=== PATIENT | female | born 1970 | race American Indian/Alaskan Native ===

== ENCOUNTER 2017-09-07 23:49 | Emergency (ER) | payer MEDICARE ==
[2017-09-08 00:19] LABS: Basophils % (Auto) 0.7 % (0.0-1.8); Eosinophils % (Auto) 0.2 % (0.0-4.3); Hematocrit 42.1 % (30.3-42.9); Hemoglobin 14.7 gm/dl (10.1-14.3); Mean Corpuscular HGB Conc 35 % (30-34); Mean Corpuscular Hemoglobin 31 pg (28-32); Mean Corpuscular Volume 88 fl (79-97); Platelet Count 303 K/mm3 (140-440); Red Blood Count 4.78 M/mm3 (3.65-5.03); Red Cell Distribution Width 16.2 % (13.2-15.2); White Blood Count 7.9 K/mm3 (4.5-11.0)
[2017-09-08] MEDS ORDERED: NACL ONE (00:34)
[2017-09-08 00:39] LABS: Anion Gap 23 mmol/L; BUN/Creatinine Ratio 10; Blood Urea Nitrogen 7 mg/dL (7-17); Calcium 9.8 mg/dL (8.4-10.2); Carbon Dioxide 23 mmol/L (22-30); Chloride 98.8 mmol/L (98-107); Glucose 92 mg/dL (65-100); Potassium 3.1 mmol/L (3.6-5.0); Sodium 142 mmol/L (137-145)
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
[2017-09-08] MEDS ORDERED: MORPHINE ONE (01:38)
[2017-09-08] MEDS ORDERED: ZOFRAN ONE (01:38)
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
[2017-09-08] MEDS ORDERED: MORPHINE IV ONE (01:53)
[2017-09-08] MEDS ORDERED: ZOFRAN IV ONE (01:53)
[2017-09-08] MEDS ORDERED: XYLOCAINE 1% 20 mL INFILTRATI ONE (04:00)
[2017-09-08] MEDS ORDERED: NACL 0.9% IR ONE (04:01)
[2017-09-08] MEDS ORDERED: XYLOCAINE 1% 20 mL ONE (04:02)
[2017-09-08] MEDS ORDERED: NACL 0.9% 500 ML IR ONE (04:02)
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
[2017-09-08] MEDS ORDERED: ceFAZolin 1 GM in NACL 0.9% 100 ML IV ONE (04:53)
[2017-09-08] MEDS ORDERED: ANCEF/NS 1 GM/50 ML 1 GM/50 ML BAG IV ONE (05:00)
[2017-09-08 07:25] VITALS: BP 118/67
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
== END 2017-09-08 07:00 | disposition other institution (70) ==
LOC: ED 23:49
DX: S22.20XA Unspecified fracture of sternum, initial encounter for closed fracture (principal); S61.411A Laceration without foreign body of right hand, initial encounter; S01.411A Laceration without foreign body of right cheek and temporomandibular area, initial encounter; F12.10 Cannabis abuse, uncomplicated; F17.200 Nicotine dependence, unspecified, uncomplicated; X58.XXXA Exposure to other specified factors, initial encounter; Y93.9 Activity, unspecified; Y99.9 Unspecified external cause status; Y92.89 Other specified places as the place of occurrence of the external cause
CPT/HCPCS: 12001; 12011; 36415; 70450; 70486; 70491; 71250; 73120; 80048; 85025; 86850; 86900; 86901; 96365; 96375; 99291; J0690; J2270; J2405; Q9967

== ENCOUNTER 2018-04-02 12:40 | Emergency (ER) | payer MEDICARE ==
[2018-04-02 13:46] LABS: Basophils % (Auto) 0.2 % (0.0-1.8); Eosinophils # (Auto) 0.1 K/mm3 (0.0-0.4); Eosinophils % (Auto) 1.4 % (0.0-4.3); Lymphocytes # (Auto) 2.3 K/mm3 (1.2-5.4); Lymphocytes % (Auto) 36.2 % (13.4-35.0); Mean Corpuscular HGB Conc 36 % (30-34); Mean Corpuscular Hemoglobin 32 pg (28-32); Mean Corpuscular Volume 89 fl (79-97); Monocytes # (Auto) 0.4 K/mm3 (0.0-0.8); Monocytes % (Auto) 5.9 % (0.0-7.3); Platelet Count 296 K/mm3 (140-440); Red Blood Count 4.57 M/mm3 (3.65-5.03); Red Cell Distribution Width 15.1 % (13.2-15.2)
[2018-04-02 13:48] LABS: Hematocrit 40.7 % (30.3-42.9); Hemoglobin 14.7 gm/dl (10.1-14.3)
[2018-04-02 13:58] LABS: Alanine Aminotransferase 88 units/L (7-56); Albumin 3.7 g/dL (3.9-5); BUN/Creatinine Ratio 7; Blood Urea Nitrogen 4 mg/dL (7-17); Hemolysis Index 16; Lipase 41 units/L (13-60)
[2018-04-02 14:47] LABS: Bilirubin,Urine NEG (Negative); Blood,Urine NEG (Negative); Color,Urine Yellow (Yellow); Protein,Urine <15 mg/dL mg/dL (Negative); Urobilinogen,Urine < 2.0 mg/dL (<2.0); WBC,Urine < 1.0 /HPF (0.0-6.0)
--- NOTE | 2018-04-02 16:09 | Emergency Department Report ---
ED Abdominal Pain HPI - General Chief Complaint: Abdominal Pain Stated Complaint: ABD PAIN Time Seen by Provider: 04/02/18 15:59 Source: patient Mode of arrival: Ambulatory Limitations: No Limitations - History of Present Illness Initial Comments: Ms. Kaplan is a 48-year-old female with history of hepatitis C and lumbar degenerative disc disease. Her PCP is Dr. Reich. She's had 1 month of worsening abdominal pain. Pain is worse over the last month. He also had vomiting and diarrhea. She also has neck and back pain to which she attributes to her degenerative disc disease. She denies fever. Only surgical history includes . She is a heavy drinker. She drinks half a gallon with 12- 24 beers daily. MD Complaint: abdominal pain -: Gradual, month(s) (1) Radiation: none Migration to: no migration Severity: severe Quality: cramping Consistency: constant Improves With: nothing Worsens With: nothing Associated Symptoms: nausea, vomiting, diarrhea - Related Data Home Medications Medication Instructions Recorded Confirmed Last Taken lamoTRIgine [LaMICtal] 25 mg PO QDAY 09/08/17 09/08/17 Unknown traZODone [Desyrel] 100 mg PO QHS 09/08/17 09/08/17 Unknown Previous Rx's Medication Instructions Recorded Last Taken Type oxyCODONE /ACETAMINOPHEN [Percocet 1 tab PO Q6HR PRN #10 tablet 04/02/18 Unknown Rx 5/325] Allergies Allergy/AdvReac Type Severity Reaction Status Date / Time No Known Allergies Allergy Verified 04/02/18 13:07 ED Review of Systems ROS: Stated complaint: ABD PAIN Other details as noted in HPI Comment: All other systems reviewed and negative Constitutional: denies: fever, malaise Respiratory: denies: cough Cardiovascular: denies: chest pain ED Past Medical Hx - Past Medical History Previous Medical History?: Yes Hx Psychiatric Treatment: Yes Additional medical history: HEP C - Surgical History Additional Surgical History: - Social History Smoking Status: Current Every Day Smoker Substance Use Type: Alcohol - Medications Home Medications: Home Medications Medication Instructions Recorded Confirmed Last Taken Type lamoTRIgine [LaMICtal] 25 mg PO QDAY 09/08/17 09/08/17 Unknown History traZODone [Desyrel] 100 mg PO QHS 10/22/17 10/22/17 Unknown History oxyCODONE /ACETAMINOPHEN [Percocet 1 tab PO Q6HR PRN #10 tablet 04/02/18 Unknown Rx 5/325] ED Physical Exam - General Limitations: No Limitations General appearance: alert, in no apparent distress - Head Head exam: Present: atraumatic, normocephalic - Eye Eye exam: Present: normal appearance - ENT ENT exam: Present: mucous membranes moist - Neck Neck exam: Present: normal inspection - Respiratory Respiratory exam: Present: normal lung sounds bilaterally. Absent: respiratory distress, wheezes, rales, rhonchi - Cardiovascular Cardiovascular Exam: Present: regular rate, normal rhythm, normal heart sounds. Absent: bradycardia, tachycardia, systolic murmur, diastolic murmur, rubs, gallop - GI/Abdominal GI/Abdominal exam: Present: soft, normal bowel sounds. Absent: distended, tenderness, guarding, rebound - Extremities Exam Extremities exam: Present: normal inspection - Back Exam Back exam: Present: normal inspection - Neurological Exam Neurological exam: Present: alert, oriented X3 - Psychiatric Psychiatric exam: Present: normal affect, normal mood - Skin Skin exam: Present: warm, dry, intact, normal color. Absent: rash ED Course Vital Signs 04/02/18 13:07 Temperature 98.8 F Pulse Rate 105 H Respiratory 18 Rate Blood Pressure 119/67 O2 Sat by Pulse 100 Oximetry ED Medical Decision Making - Lab Data Result diagrams: 04/02/18 13:17 04/02/18 13:17 Laboratory Results - last 24 hr 04/02/18 04/02/18 04/02/18 13:17 13:17 Unknown WBC 6.2 RBC 4.57 Hgb 14.7 H Hct 40.7 MCV 89 MCH 32 MCHC 36 H RDW 15.1 Plt Count 296 Lymph % (Auto) 36.2 H [place] % (Auto) 5.9 Eos % (Auto) 1.4 Baso % (Auto) 0.2 Lymph # 2.3 Perkins # 0.4 Eos # 0.1 Baso # 0.0 Seg Neutrophils % 56.3 Seg Neutrophils # 3.5 Sodium 142 Potassium 4.5 Chloride 104.5 Carbon Dioxide 26 Anion Gap 16 BUN 4 L Creatinine 0.6 L Estimated GFR > 60 BUN/Creatinine Ratio 7 Glucose 106 H Calcium 9.0 Total Bilirubin 0.70 AST 75 H ALT 88 H Alkaline Phosphatase 105 Total Protein 7.2 Albumin 3.7 L Albumin/Globulin Ratio 1.1 Lipase 41 Urine Color Yellow Urine Turbidity Clear Urine pH 7.0 Ur Specific [place] 1.004 Urine Protein <15 mg/dl Urine Glucose (UA) Neg Urine Ketones Neg Urine Blood Neg Urine Nitrite Neg Urine Bilirubin Neg Urine Urobilinogen < 2.0 Ur Leukocyte Esterase Neg Urine WBC (Auto) < 1.0 Urine RBC (Auto) 1.0 - Medical Decision Making Ms. Mireles presents with 1 month of abdominal pain and chronic neck and back pain. No indication of peritonitis. No indication of bowel obstruction. Normal white count. Normal hemoglobin and hematocrit. Differential diagnosis pain related to alcoholic gastritis versus peptic ulcer disease versus pain related to hepatitis. I prescribed 10 tablets of Percocet. I strongly recommended follow-up with her primary physician Dr. Reich. She stated that she did not want to pay the 4 dollar co-pay in order to see her PCP. I urgently recommended PCP follow-up for definitive care. I do not detect any emergent cause of her abdominal pain currently. Critical care attestation.: If time is entered above; I have spent that time in minutes in the direct care of this critically ill patient, excluding procedure time. ED Disposition Clinical Impression: Abdominal pain, Neck pain, Back pain Disposition: DC-01 TO HOME OR SELFCARE Is pt being admited?: No Does the pt Need Aspirin: No Condition: Stable Instructions: Abdominal Pain (ED), Chronic Back Pain (ED) Additional Instructions: Please see Dr. Reich this week. Prescriptions: oxyCODONE /ACETAMINOPHEN [Percocet 5/325] 1 tab PO Q6HR PRN #10 tablet PRN Reason: Pain Referrals: PRIMARY CARE, [Primary Care Provider] - [facility] Time of Disposition: 16:10
[2018-04-02] MEDS ORDERED: PERCOCET 5/325 PO ONE (16:11)
[2018-04-02 17:26] VITALS: BP 128/72
== END 2018-04-02 17:00 | disposition home or self-care (01) ==
LOC: ED 12:40
DX: R10.9 Unspecified abdominal pain (principal); R11.2 Nausea with vomiting, unspecified; R19.7 Diarrhea, unspecified; M54.9 Dorsalgia, unspecified; F17.200 Nicotine dependence, unspecified, uncomplicated
CPT/HCPCS: 36415; 80053; 81001; 83690; 85025; 99283

== ENCOUNTER 2018-04-13 13:50 | Observation (INO) | payer MEDICARE ==
--- NOTE | 2018-04-13 15:11 | Emergency Department Report ---
ED Psych HPI - General Chief Complaint: Psych Stated Complaint: PSYCH EVAL Time Seen by Provider: 04/13/18 14:42 Source: patient, EMS Mode of arrival: Stretcher - History of Present Illness Initial Comments: 48-year-old female with a history of bipolar disorder. She is brought per EMS after they were summoned by the police. She was "having a manic episode". She states that she was in the right a parking lot. She states she is recently restarted her psychiatric medications. At the time of my initial encounter she was sleeping. She was easily arousable. She did speak to me and stated that she "just had a panic attack". She is not apparently actively manic or depressed. She is not voicing any suicidal or homicidal ideation. She is sitting on the gurney with medical records from another individual who she states is her boyfriend. She states that they were both seen at [place]. She has a relatively large folder with prescriptions for that individual. I did not review the folder. I did ask her where that individual was and if they need their prescriptions. She stated they were at home and yesterday do need their prescriptions. Exactly why she is carrying this folder I do not know. She is guarded about the fact that she received 5 mg of Haldol IM in the ambulance. She did not volunteer that information to me but obviously has a Band-Aid on her arm. She is not actively delusional nor hallucinating. Complaint: other -: unknown Associated Psychiatric Symptoms: other (manic episode) Quality: other (improving with Haldol) Improves With: none (as above) Worsens With: none Context: not taking psychiatric (probably poor compliance) Associated Symptoms: denies other symptoms Treatments Prior to Arrival: placed on mental he (I am now placing the patient on a 1013 to enable mental health evaluation at a minimum) - Related Data Home Medications Medication Instructions Recorded Confirmed Last Taken lamoTRIgine [LaMICtal] 25 mg PO QDAY 09/08/17 09/08/17 Unknown traZODone [Desyrel] 100 mg PO QHS 09/08/17 09/08/17 Unknown Previous Rx's Medication Instructions Recorded Last Taken Type oxyCODONE /ACETAMINOPHEN [Percocet 1 tab PO Q6HR PRN #10 tablet 04/02/18 Unknown Rx 5/325] Allergies Allergy/AdvReac Type Severity Reaction Status Date / Time codeine Allergy Itching Verified 04/13/18 14:16 ED Review of Systems ROS: Stated complaint: PSYCH EVAL Other details as noted in HPI Constitutional: denies: chills, fever Eyes: denies: eye pain, eye discharge, vision change ENT: denies: ear pain, throat pain Respiratory: denies: cough, shortness of breath, wheezing Cardiovascular: denies: chest pain, palpitations Endocrine: no symptoms reported Gastrointestinal: denies: abdominal pain, nausea, diarrhea Genitourinary: denies: urgency, dysuria, discharge Musculoskeletal: denies: back pain, joint swelling, arthralgia Skin: denies: rash, lesions Neurological: denies: headache, weakness, paresthesias Psychiatric: as per HPI, other ("panic attack"). denies: depression Hematological/Lymphatic: denies: easy bleeding, easy bruising ED Past Medical Hx - Past Medical History Previous Medical History?: Yes Hx Psychiatric Treatment: Yes (Bi polar, Paranoid Schizophrenia) Additional medical history: HEP C - Surgical History Past Surgical History?: Yes Additional Surgical History: - Social History Smoking Status: Current Every Day Smoker Substance Use Type: Alcohol, Cocaine - Medications Home Medications: Home Medications Medication Instructions Recorded Confirmed Last Taken Type lamoTRIgine [LaMICtal] 25 mg PO QDAY 09/08/17 09/08/17 Unknown History traZODone [Desyrel] 100 mg PO QHS 09/08/17 09/08/17 Unknown History oxyCODONE /ACETAMINOPHEN [Percocet 1 tab PO Q6HR PRN #10 tablet 04/02/18 Unknown Rx 5/325] ED Physical Exam - General Limitations: No Limitations General appearance: alert, in no apparent distress - Head Head exam: Present: atraumatic, normocephalic - Eye Eye exam: Present: normal appearance. Absent: scleral icterus - ENT ENT exam: Present: mucous membranes moist - Neck Neck exam: Present: normal inspection. Absent: meningismus - Respiratory Respiratory exam: Present: normal lung sounds bilaterally. Absent: respiratory distress - Cardiovascular Cardiovascular Exam: Present: regular rate, normal rhythm. Absent: systolic murmur, diastolic murmur, rubs, gallop - GI/Abdominal GI/Abdominal exam: Present: soft, normal bowel sounds. Absent: distended, tenderness, guarding, rebound, rigid - Extremities Exam Extremities exam: Present: normal inspection - Back Exam Back exam: Present: normal inspection - Neurological Exam Neurological exam: Present: alert, oriented X3, CN II-XII intact. Absent: motor sensory deficit - Psychiatric Psychiatric exam: Present: normal mood, flat affect - Skin Skin exam: Present: warm, dry, intact, normal color. Absent: rash ED Course Vital Signs 04/13/18 14:13 Temperature 98.8 F Pulse Rate 120 H Respiratory 16 Rate Blood Pressure 134/74 O2 Sat by Pulse 100 Oximetry - Reevaluation(s) Reevaluation #1: Patient will be 1013 until this can be further evaluated. Mental health counselor evaluation is pending. 04/13/18 15:13 Reevaluation #2: I compared with the hospitalist Dr. Ortega. He decided to admit this patient for hyponatremia. Inpatient psychiatric evaluation will continue. 04/13/18 17:29 ED Medical Decision Making - Lab Data Result diagrams: 04/13/18 15:03 04/13/18 15:03 Laboratory Results - last 24 hr 04/13/18 04/13/18 04/13/18 15:03 15:03 15:03 WBC RBC Hgb Hct MCV MCH MCHC RDW Plt Count Lymph % (Auto) [place] % (Auto) Eos % (Auto) Baso % (Auto) Lymph # [place] # Eos # Baso # Seg Neutrophils % Seg Neutrophils # Sodium 125 L Potassium 3.1 L Chloride 92.0 L Carbon Dioxide 23 Anion Gap 13 BUN 6 L Creatinine 0.5 L Estimated GFR > 60 BUN/Creatinine Ratio 12 Glucose 88 Calcium 9.0 Total Bilirubin Direct Bilirubin Indirect Bilirubin AST ALT Alkaline Phosphatase Total Creatine Kinase CK-MB (CK-2) CK-MB (CK-2) Rel Index Total Protein Albumin Albumin/Globulin Ratio Urine Color Urine Turbidity Urine pH Ur Specific [place] Urine Protein Urine Glucose (UA) Urine Ketones Urine Blood Urine Nitrite Urine Bilirubin Urine Urobilinogen Ur Leukocyte Esterase Urine WBC (Auto) Urine RBC (Auto) U Epithel Cells (Auto) Urine Mucus Salicylates < 0.3 L Urine Opiates Screen Urine Methadone Screen Acetaminophen < 5.0 L Ur Barbiturates Screen Ur Phencyclidine Scrn Ur Amphetamines Screen U Benzodiazepines Scrn U Marijuana (THC) Screen Plasma/Serum Alcohol 04/13/18 04/13/18 04/13/18 15:03 15:03 15:03 WBC 8.2 RBC 4.49 Hgb 13.9 Hct 40.0 MCV 89 MCH 31 MCHC 35 H RDW 14.3 Plt Count 315 Lymph % (Auto) 28.8 [place] % (Auto) 5.7 Eos % (Auto) 0.6 Baso % (Auto) 0.7 Lymph # 2.4 [place] # 0.5 Eos # 0.0 Baso # 0.1 Seg Neutrophils % 64.2 Seg Neutrophils # 5.3 Sodium Potassium Chloride Carbon Dioxide Anion Gap BUN Creatinine Estimated GFR BUN/Creatinine Ratio Glucose Calcium Total Bilirubin 0.90 Direct Bilirubin 0.3 H Indirect Bilirubin 0.6 AST 93 H ALT 97 H Alkaline Phosphatase 123 Total Creatine Kinase 216 H CK-MB (CK-2) 3.0 CK-MB (CK-2) Rel Index 1.3 Total Protein 7.8 Albumin 4.0 Albumin/Globulin Ratio 1.1 Urine Color Urine Turbidity Urine pH Ur Specific [place] Urine Protein Urine Glucose (UA) Urine Ketones Urine Blood Urine Nitrite Urine Bilirubin Urine Urobilinogen Ur Leukocyte Esterase Urine WBC (Auto) Urine RBC (Auto) U Epithel Cells (Auto) Urine Mucus Salicylates Urine Opiates Screen Urine Methadone Screen Acetaminophen Ur Barbiturates Screen Ur Phencyclidine Scrn Ur Amphetamines Screen U Benzodiazepines Scrn U Marijuana (THC) Screen Plasma/Serum Alcohol < 0.01 04/13/18 04/13/18 16:26 16:26 WBC RBC Hgb Hct MCV MCH MCHC RDW Plt Count Lymph % (Auto) [place] % (Auto) Eos % (Auto) Baso % (Auto) Lymph # [place] # Eos # Baso # Seg Neutrophils % Seg Neutrophils # Sodium Potassium Chloride Carbon Dioxide Anion Gap BUN Creatinine Estimated GFR BUN/Creatinine Ratio Glucose Calcium Total Bilirubin Direct Bilirubin Indirect Bilirubin AST ALT Alkaline Phosphatase Total Creatine Kinase CK-MB (CK-2) CK-MB (CK-2) Rel Index Total Protein Albumin Albumin/Globulin Ratio Urine Color Yellow Urine Turbidity Clear Urine pH 5.0 Ur Specific [place] 1.004 Urine Protein <15 mg/dl Urine Glucose (UA) Neg Urine Ketones Neg Urine Blood Neg Urine Nitrite Neg Urine Bilirubin Neg Urine Urobilinogen < 2.0 Ur Leukocyte Esterase Neg Urine WBC (Auto) 3.0 Urine RBC (Auto) < 1.0 U Epithel Cells (Auto) 1.0 Urine Mucus Few Salicylates Urine Opiates Screen Presumptive negative Urine Methadone Screen Presumptive negative Acetaminophen Ur Barbiturates Screen Presumptive negative Ur Phencyclidine Scrn Presumptive negative Ur Amphetamines Screen Presumptive negative U Benzodiazepines Scrn Presumptive negative U Marijuana (THC) Screen Presumptive negative Plasma/Serum Alcohol Critical care attestation.: If time is entered above; I have spent that time in minutes in the direct care of this critically ill patient, excluding procedure time. ED Disposition Clinical Impression: Hyponatremia, Hypokalemia Bipolar disorder Qualifiers: Active/Remission status: currently active Current bipolar episode type: manic Current episode severity: severe Psychotic features: without psychotic features Qualified Code(s): F31.13 - Bipolar disorder, current episode manic without psychotic features, severe Disposition: DC-09 OP ADMIT IP TO THIS HOSP Is pt being admited?: Yes Does the pt Need Aspirin: No Condition: Stable Referrals: PRIMARY CARE, [Primary Care Provider] - 3-5 Days Time of Disposition: 17:30
[2018-04-13 15:26] LABS: Basophils # (Auto) 0.1 K/mm3 (0.0-0.1); Basophils % (Auto) 0.7 % (0.0-1.8); Eosinophils % (Auto) 0.6 % (0.0-4.3); Hemoglobin 13.9 gm/dl (10.1-14.3); Lymphocytes # (Auto) 2.4 K/mm3 (1.2-5.4); Lymphocytes % (Auto) 28.8 % (13.4-35.0); Mean Corpuscular HGB Conc 35 % (30-34); Mean Corpuscular Hemoglobin 31 pg (28-32); Mean Corpuscular Volume 89 fl (79-97); Monocytes # (Auto) 0.5 K/mm3 (0.0-0.8); Monocytes % (Auto) 5.7 % (0.0-7.3); Platelet Count 315 K/mm3 (140-440); Red Blood Count 4.49 M/mm3 (3.65-5.03); Red Cell Distribution Width 14.3 % (13.2-15.2)
[2018-04-13 15:32] LABS: BUN/Creatinine Ratio 12; Blood Urea Nitrogen 6 mg/dL (7-17); Hemolysis Index 3
[2018-04-13 15:47] LABS: Bilirubin,Direct 0.3 mg/dL (0-0.2)
[2018-04-13 16:34] LABS: Bilirubin,Urine NEG (Negative); Blood,Urine NEG (Negative); Color,Urine Yellow (Yellow); Mucus,Urine FEW /HPF; Protein,Urine <15 mg/dL mg/dL (Negative); RBC,Urine < 1.0 /HPF (0.0-6.0); Urobilinogen,Urine < 2.0 mg/dL (<2.0)
[2018-04-13 16:41] LABS: Amphetamine Screen,Urine PRESUMPTIVE NEGATIVE; Benzodiazepines Screen,Urine PRESUMPTIVE NEGATIVE; Cannabinoid Screen,Urine PRESUMPTIVE NEGATIVE; Methadone Screen,Urine PRESUMPTIVE NEGATIVE; Opiate Screen,Urine PRESUMPTIVE NEGATIVE
[2018-04-13] MEDS ORDERED: K-DUR PO ONE ×2 (16:54→17:00)
[2018-04-13] MEDS ORDERED: NACL 0.9% 1000 ML 1,000 ML IV ONE (16:55)
[2018-04-13 17:00] LABS: Cocaine Screen,Urine PRESUMPTIVE POSITIVE
--- NOTE | 2018-04-13 17:35 | History and Physical Report ---
History of Present Illness Date of examination: 04/13/18 Date of admission: 04/13/2018 Chief complaint: Chief complaint: Manic episode as per EMS History of present illness: History of Present Illness: 48-year-old -[place] female with history of bipolar disorder brought in by EMS for her possible "manic episode" patient was recently started her on psychiatric medicines. Patient says that she just had a panic attack. In the ER patient was not in a manic state and was not suicidal or homicidal. No fever no chills patient is carrying a folder and says that she has all her medications. I was called by the ER physician to admit her because of this low sodium and low potassium. Her sodium was 125 and she is not on any diuretics or Lasix. No shortness of breath no fever. No chills no chest pain no nausea no vomiting. Her low sodium could not be explained by the medication she's taking. Past Medical History Previous Medical History?: Yes Hx Psychiatric Treatment: Yes (Bi polar, Paranoid Schizophrenia) Additional medical history: HEP C Surgical History Past Surgical History?: Yes Additional Surgical History: Social History Smoking Status: Current Every Day Smoker Substance Use Type: Alcohol, Cocaine Family history Htn Medications Home Medications: Home Medications Medication Instructions Recorded Confirmed Last Taken Type lamoTRIgine [LaMICtal] 25 mg PO QDAY 09/08/17 09/08/17 Unknown History traZODone [Desyrel] 100 mg PO QHS 09/08/17 09/08/17 Unknown History oxyCODONE /ACETAMINOPHEN [Percocet 1 tab PO Q6HR PRN #10 tablet 04/02/18 Unknown Rx 5/325] Review of Systems ROS: Stated complaint: PSYCH EVAL Other details as noted in HPI Constitutional: denies: chills, fever Eyes: denies: eye pain, eye discharge, vision change ENT: denies: ear pain, throat pain Respiratory: denies: cough, shortness of breath, wheezing Cardiovascular: denies: chest pain, palpitations Endocrine: no symptoms reported Gastrointestinal: denies: abdominal pain, nausea, diarrhea Genitourinary: denies: urgency, dysuria, discharge Musculoskeletal: denies: back pain, joint swelling, arthralgia Skin: denies: rash, lesions Neurological: denies: headache, weakness, paresthesias Psychiatric: as per HPI, other ("panic attack"). denies: depression Hematological/Lymphatic: denies: easy bleeding, easy bruising Medications and Allergies Allergies Allergy/AdvReac Type Severity Reaction Status Date / Time codeine Allergy Itching Verified 04/13/18 14:16 Home Medications Medication Instructions Recorded Confirmed Last Taken Type lamoTRIgine [LaMICtal] 25 mg PO QDAY 09/08/17 09/08/17 Unknown History traZODone [Desyrel] 100 mg PO QHS 09/08/17 09/08/17 Unknown History oxyCODONE /ACETAMINOPHEN [Percocet 1 tab PO Q6HR PRN #10 tablet 04/02/18 Unknown Rx 5/325] Active Meds: Active Medications Sodium Chloride (Nacl 0.9% 1000 Ml) 1,000 mls @ 125 mls/hr IV ONCE ONE Stop: 04/14/18 00:54 Exam - Physical Exam Narrative exam: Lying in bed comfortably - Constitutional Vitals: Temp Pulse Resp BP Pulse Ox 98.8 F 120 H 16 134/74 100 04/13/18 14:13 04/13/18 14:13 04/13/18 14:13 04/13/18 14:13 04/13/18 14:13 General appearance: Present: no acute distress, well-nourished - EENT Eyes: Present: PERRL ENT: hearing intact, clear oral mucosa - Neck Neck: Present: supple, normal ROM - Respiratory Respiratory effort: normal Respiratory: bilateral: CTA - Cardiovascular Heart rate: 78 Rhythm: regular Heart Sounds: Present: S1 & S2. Absent: rub, click - Extremities Extremities: no ischemia, pulses intact, pulses symmetrical, No edema Peripheral Pulses: within normal limits - Abdominal General gastrointestinal: Present: soft, non-tender, non-distended, normal bowel sounds Female genitourinary: Present: normal - Rectal Rectal Exam: deferred - Integumentary Integumentary: Present: clear, warm, dry - Musculoskeletal Musculoskeletal: gait normal, strength equal bilaterally - Psychiatric Psychiatric: appropriate mood/affect, intact judgment & insight - Neurologic Neurologic: CNII-XII intact, moves all extremities - Allied Health Allied health notes reviewed: nursing, case management Results - Labs CBC & Chem 7: 04/13/18 15:03 04/13/18 15:03 Labs: Laboratory Last Values WBC 8.2 K/mm3 (4.5-11.0) 04/13/18 15:03 RBC 4.49 M/mm3 (3.65-5.03) 04/13/18 15:03 Hgb 13.9 gm/dl (10.1-14.3) 04/13/18 15:03 Hct 40.0 % (30.3-42.9) 04/13/18 15:03 MCV 89 fl (79-97) 04/13/18 15:03 MCH 31 pg (28-32) 04/13/18 15:03 MCHC 35 % (30-34) H 04/13/18 15:03 RDW 14.3 % (13.2-15.2) 04/13/18 15:03 Plt Count 315 K/mm3 (140-440) 04/13/18 15:03 Lymph % (Auto) 28.8 % (13.4-35.0) 04/13/18 15:03 [place] % (Auto) 5.7 % (0.0-7.3) 04/13/18 15:03 Eos % (Auto) 0.6 % (0.0-4.3) 04/13/18 15:03 Baso % (Auto) 0.7 % (0.0-1.8) 04/13/18 15:03 Lymph # 2.4 K/mm3 (1.2-5.4) 04/13/18 15:03 [place] # 0.5 K/mm3 (0.0-0.8) 04/13/18 15:03 Eos # 0.0 K/mm3 (0.0-0.4) 04/13/18 15:03 Baso # 0.1 K/mm3 (0.0-0.1) 04/13/18 15:03 Seg Neutrophils % 64.2 % (40.0-70.0) 04/13/18 15:03 Seg Neutrophils # 5.3 K/mm3 (1.8-7.7) 04/13/18 15:03 Sodium 125 mmol/L (137-145) L 04/13/18 15:03 Potassium 3.1 mmol/L (3.6-5.0) L 04/13/18 15:03 Chloride 92.0 mmol/L (98-107) L 04/13/18 15:03 Carbon Dioxide 23 mmol/L (22-30) 04/13/18 15:03 Anion Gap 13 mmol/L 04/13/18 15:03 BUN 6 mg/dL (7-17) L 04/13/18 15:03 Creatinine 0.5 mg/dL (0.7-1.2) L 04/13/18 15:03 Estimated GFR > 60 ml/min 04/13/18 15:03 BUN/Creatinine Ratio 12 % 04/13/18 15:03 Glucose 88 mg/dL (65-100) 04/13/18 15:03 Calcium 9.0 mg/dL (8.4-10.2) 04/13/18 15:03 Total Bilirubin 0.90 mg/dL (0.1-1.2) 04/13/18 15:03 Direct Bilirubin 0.3 mg/dL (0-0.2) H 04/13/18 15:03 Indirect Bilirubin 0.6 mg/dL 04/13/18 15:03 AST 93 units/L (5-40) H 04/13/18 15:03 ALT 97 units/L (7-56) H 04/13/18 15:03 Alkaline Phosphatase 123 units/L (35-129) 04/13/18 15:03 Total Creatine Kinase 216 units/L (30-135) H 04/13/18 15:03 CK-MB (CK-2) 3.0 ng/mL (0.0-4.0) 04/13/18 15:03 CK-MB (CK-2) Rel Index 1.3 (0-4) 04/13/18 15:03 Total Protein 7.8 g/dL (6.3-8.2) 04/13/18 15:03 Albumin 4.0 g/dL (3.9-5) 04/13/18 15:03 Albumin/Globulin Ratio 1.1 % 04/13/18 15:03 Urine Color Yellow (Yellow) 04/13/18 16:26 Urine Turbidity Clear (Clear) 04/13/18 16:26 Urine pH 5.0 (5.0-7.0) 04/13/18 16:26 Ur Specific [place] 1.004 (1.003-1.030) 04/13/18 16:26 Urine Protein <15 mg/dl mg/dL (Negative) 04/13/18 16:26 Urine Glucose (UA) Neg mg/dL (Negative) 04/13/18 16:26 Urine Ketones Neg mg/dL (Negative) 04/13/18 16:26 Urine Blood Neg (Negative) 04/13/18 16:26 Urine Nitrite Neg (Negative) 04/13/18 16:26 Urine Bilirubin Neg (Negative) 04/13/18 16:26 Urine Urobilinogen < 2.0 mg/dL (<2.0) 04/13/18 16:26 Ur Leukocyte Esterase Neg (Negative) 04/13/18 16:26 Urine WBC (Auto) 3.0 /HPF (0.0-6.0) 04/13/18 16:26 Urine RBC (Auto) < 1.0 /HPF (0.0-6.0) 04/13/18 16:26 U Epithel Cells (Auto) 1.0 /HPF (0-13.0) 04/13/18 16:26 Urine Mucus Few /HPF 04/13/18 16:26 Salicylates < 0.3 mg/dL (2.8-20.0) L 04/13/18 15:03 Urine Opiates Screen Presumptive negative 04/13/18 16:26 Urine Methadone Screen Presumptive negative 04/13/18 16:26 Acetaminophen < 5.0 ug/mL (10.0-30.0) L 04/13/18 15:03 Ur Barbiturates Screen Presumptive negative 04/13/18 16:26 Ur Phencyclidine Scrn Presumptive negative 04/13/18 16:26 Ur Amphetamines Screen Presumptive negative 04/13/18 16:26 U Benzodiazepines Scrn Presumptive negative 04/13/18 16:26 Urine Cocaine Screen Presumptive positive 04/13/18 16:26 U Marijuana (THC) Screen Presumptive negative 04/13/18 16:26 Drugs of Abuse Note Disclamer 04/13/18 16:26 Plasma/Serum Alcohol < 0.01 % (0-0.07) 04/13/18 15:03 - Imaging and Cardiology Imaging and Cardiology: No EKG was done No head CT was done Assessment and Plan Advance Directives: Yes (full code) VTE prophylaxis?: Chemical Plan of care discussed with patient/family: Yes - Patient Problems (1) Hyponatremia Current Visit: Yes Status: Acute Plan to address problem: Etiology unclear Patient on trazodone and Lamictal Check PDR to see whether these drugs cause hyponatremia Serum osmolarity and urine osmolarity ordered IV normal saline Check BMP again (2) Hypokalemia Current Visit: Yes Status: Acute Plan to address problem: Supplemented (3) Bipolar disorder Current Visit: Yes Status: Acute Qualifiers: Active/Remission status: currently active Current bipolar episode type: manic Current episode severity: severe Psychotic features: without psychotic features Qualified Code(s): F31.13 - Bipolar disorder, current episode manic without psychotic features, severe (4) Bipolar disorder Current Visit: Yes Status: Chronic Qualifiers: Current bipolar episode type: mixed Plan to address problem: Continue trazodone and Lamictal Mental health consult requested Patient on 1013 (5) DVT prophylaxis Current Visit: Yes Status: Acute Plan to address problem: Heparin 5000.
[2018-04-13] MEDS ORDERED: PERCOCET 5/325 PO PRN ×2 (17:39→17:47)
[2018-04-13 17:41] LABS: BUN/Creatinine Ratio 14; Blood Urea Nitrogen 7 mg/dL (7-17); Calcium 8.6 mg/dL (8.4-10.2); Hemolysis Index 10
[2018-04-13] MEDS ORDERED: TYLENOL PO PRN ×2 (17:44→17:47)
[2018-04-13] MEDS ORDERED: SODIUM CHLORIDE FLUSH SYRINGE 10 ML IV PRN ×2 (17:44→17:47)
[2018-04-13] MEDS ORDERED: ZOFRAN IV PRN ×2 (17:44→17:47)
[2018-04-13] MEDS ORDERED: MORPHINE IV PRN (17:47)
[2018-04-13] MEDS ORDERED: LaMICtal PO SCH (18:00)
[2018-04-13] MEDS: DESYREL PO SCH (21:36)
[2018-04-13] MEDS: D5NS 1,000 ML IV SCH (21:36)
[2018-04-13] MEDS ORDERED: SODIUM CHLORIDE FLUSH SYRINGE 10 ML IV SCH ×2 (22:00)
[2018-04-14] MEDS: D5NS 1,000 ML IV SCH ×3 (05:41→21:51)
[2018-04-14 06:19] LABS: Basophils # (Auto) 0.1 K/mm3 (0.0-0.1); Basophils % (Auto) 0.9 % (0.0-1.8); Eosinophils # (Auto) 0.2 K/mm3 (0.0-0.4); Eosinophils % (Auto) 2.8 % (0.0-4.3); Hematocrit 37.9 % (30.3-42.9); Hemoglobin 13.4 gm/dl (10.1-14.3); Lymphocytes # (Auto) 2.8 K/mm3 (1.2-5.4); Lymphocytes % (Auto) 52.5 % (13.4-35.0); Mean Corpuscular HGB Conc 35 % (30-34); Mean Corpuscular Hemoglobin 32 pg (28-32); Mean Corpuscular Volume 89 fl (79-97); Monocytes # (Auto) 0.4 K/mm3 (0.0-0.8); Monocytes % (Auto) 7.1 % (0.0-7.3); Platelet Count 295 K/mm3 (140-440); Red Blood Count 4.24 M/mm3 (3.65-5.03); Red Cell Distribution Width 14.6 % (13.2-15.2)
[2018-04-14 07:28] LABS: Alanine Aminotransferase 75 units/L (7-56); Albumin 3.2 g/dL (3.9-5); BUN/Creatinine Ratio 18; Blood Urea Nitrogen 9 mg/dL (7-17); Calcium 8.4 mg/dL (8.4-10.2); Hemolysis Index 4
--- NOTE | 2018-04-14 09:49 | Consultation ---
History of Present Illness - Reason for Consult Consult date: 04/14/18 Reason for consult: Mental Health Evaluation Requesting physician: ZEINA CHRISTIAN - Chief Complaint Chief complaint: "I had a panic attack" - History of Present Psychiatric Illness 48-year-old female with a history of bipolar disorder. She is brought per EMS after they were summoned by the police. Psychiatry was consulted for medication management, also the patient is on a 1013. Today the patient is anxious during the assessment. She stated that she felt like she was having a panic attack prior to coming the ER. She was asked about what happened at a pharmacy parking lot her 1013, she could not elaborate. She stated for the past several days that "someone or some people" may be after her. She stated that they used to engage in illegal activity and decided to stop recently. She feel like she " know to much" and the leader of the illegal activity may harm her. She stated being compliant with her Trazodone, Zyprexa, and Vistaril for the past week. She stated that she took Lamictal several yrs ago. She stated that Lamictal is not one of her current psy medications. She denies SI/HI's and AVH's. She stated having erratic sleep, but denies a poor appetite. She acknowledged recreational drugs use socially, but denies alcohol consumption (etoh). She stated that her boyfriend can be reached at [phone] for collateral information. Medications and Allergies Allergies Allergy/AdvReac Type Severity Reaction Status Date / Time codeine Allergy Itching Verified 04/13/18 14:16 Home Medications Medication Instructions Recorded Confirmed Last Taken Type lamoTRIgine [LaMICtal] 25 mg PO QDAY 09/08/17 04/13/18 Unknown History traZODone [Desyrel] 100 mg PO QHS 09/08/17 04/13/18 Unknown History oxyCODONE /ACETAMINOPHEN [Percocet 1 tab PO Q6HR PRN #10 tablet 04/02/18 Unknown Rx 5/325] Active Meds: Active Medications Acetaminophen (Tylenol) 650 mg PO Q4H PRN PRN Reason: Pain MILD(1-3)/Fever >100.5/[facility] Acetaminophen (Tylenol) 650 mg PO Q4H PRN PRN Reason: Pain MILD(1-3)/Fever >100.5/[facility] Dextrose/Sodium Chloride (D5ns) 1,000 mls @ 125 mls/hr IV DIRECT [place] Last Admin: 04/14/18 05:41 Dose: 125 mls/hr Morphine Sulfate (Morphine) 2 mg IV Q4H PRN PRN Reason: Pain, Moderate (4-6) Olanzapine (Zyprexa) 10 mg PO HS [place] Sodium Chloride (Sodium Chloride Flush Syringe 10 Ml) 10 ml IV PRN PRN PRN Reason: LINE FLUSH Last Admin: 04/13/18 21:39 Dose: 10 ml Sodium Chloride (Sodium Chloride Flush Syringe 10 Ml) 10 ml IV PRN PRN PRN Reason: LINE FLUSH Trazodone HCl (Desyrel) 100 mg PO QHS [place] Last Admin: 04/13/18 21:36 Dose: 100 mg Past psychiatric history - Past Medical History Past Medical History: other (Hep C) Past Surgical History: - past Psychiatric treatment and history Psych: Bipolar psychiatric treatment history: Multiple inpatient psy settings. Denies a fam psy hx. - Social History Social history: lives with family Mental Status Exam - Vital signs Last Vital Signs Temp 97.8 F 04/14/18 08:24 Pulse 72 04/14/18 08:24 Resp 16 04/14/18 08:24 BP 132/71 04/14/18 08:24 Pulse Ox 99 04/14/18 03:30 - Exam Narrative exam: MSE: Appearance: calm, cooperative Behavior: regular eye contact Speech: pressured speech Mood: "okay" Affect: congruent to mood Thought Process: circumstantial Thought Content: denies SI/HI's and AVH's, possiblt delusional Motor Activity: lying in bed Cognition: A/O x 3 Insight: variable Judgment: variable Results Result Diagrams: 04/14/18 05:09 04/14/18 05:09 Abnormal lab results 04/13/18 04/13/18 04/13/18 Range/Units 15:03 15:03 15:03 MCHC (30-34) % Lymph % (Auto) (13.4-35.0) % Seg Neutrophils % (40.0-70.0) % Sodium 125 L (137-145) mmol/L Potassium 3.1 L (3.6-5.0) mmol/L Chloride 92.0 L (98-107) mmol/L BUN 6 L (7-17) mg/dL Creatinine 0.5 L (0.7-1.2) mg/dL Glucose (65-100) mg/dL Direct Bilirubin (0-0.2) mg/dL AST (5-40) units/L ALT (7-56) units/L Total Creatine Kinase (30-135) units/L Albumin (3.9-5) g/dL Salicylates < 0.3 L (2.8-20.0) mg/dL Acetaminophen < 5.0 L (10.0-30.0) ug/mL 04/13/18 04/13/18 04/13/18 Range/Units 15:03 15:03 17:00 MCHC 35 H (30-34) % Lymph % (Auto) (13.4-35.0) % Seg Neutrophils % (40.0-70.0) % Sodium 132 L D (137-145) mmol/L Potassium 3.2 L (3.6-5.0) mmol/L Chloride 97.4 L (98-107) mmol/L BUN (7-17) mg/dL Creatinine 0.5 L (0.7-1.2) mg/dL Glucose 116 H (65-100) mg/dL Direct Bilirubin 0.3 H (0-0.2) mg/dL AST 93 H (5-40) units/L ALT 97 H (7-56) units/L Total Creatine Kinase 216 H (30-135) units/L Albumin (3.9-5) g/dL Salicylates (2.8-20.0) mg/dL Acetaminophen (10.0-30.0) ug/mL 04/14/18 04/14/18 Range/Units 05:09 05:09 MCHC 35 H (30-34) % Lymph % (Auto) 52.5 H (13.4-35.0) % Seg Neutrophils % 36.7 L (40.0-70.0) % Sodium (137-145) mmol/L Potassium (3.6-5.0) mmol/L Chloride 109.0 H (98-107) mmol/L BUN (7-17) mg/dL Creatinine 0.5 L (0.7-1.2) mg/dL Glucose (65-100) mg/dL Direct Bilirubin (0-0.2) mg/dL AST 77 H (5-40) units/L ALT 75 H (7-56) units/L Total Creatine Kinase (30-135) units/L Albumin 3.2 L (3.9-5) g/dL Salicylates (2.8-20.0) mg/dL Acetaminophen (10.0-30.0) ug/mL All other labs normal. Assessment and Plan Assessment and plan: Impression: Unspecified Psychosis on admission. Hx of Bipolar DO and ZAIRE per the patient. Substance Use DO (cocaine). Today the patient is anxious during the assessment. NA 141. K 4.2. DDx: R/O Substance Induced Psychosis, R/O Delusional DO Recommendation/Plan: Continue 1013 and gather collateral information to determine proper dispo once medically clear. Start Zyprexa 10 mg PO HS for psychosis and Vistaril 25 mg PO Q6hrs PRN for anxiety. Continue Trazodone 100 mg PO HS for sleep. Discussed possible suicidality/medication induced andrés with patient reference Trazodone. Discussed possible metabolic side effects of Zyprexa with patient.
--- NOTE | 2018-04-14 13:03 | Progress Note ---
Assessment and Plan 48-year-old -Iranian female with history of bipolar disorder brought in by EMS for her possible "manic episode" patient was recently started her on psychiatric medicines. Patient says that she just had a panic attack. In the ER patient was not in a manic state and was not suicidal or homicidal. No fever no chills patient is carrying a folder and says that she has all her medications. I was called by the ER physician to admit her because of this low sodium and low potassium. Her sodium was 125 and she is not on any diuretics or Lasix. No shortness of breath no fever. No chills no chest pain no nausea no vomiting. Her low sodium could not be explained by the medication she's taking. - Hyponatremia Normal Serum osmolarity and urine osmolarity ordered IV normal saline reCheck BMP - Hypokalemia Supplemented Check magnesium - Substance-induced paranoid schizophrenia Continue trazodone and Lamictal Mental health consult requested Patient on 1013 (5) DVT prophylaxis Current Visit: Yes Status: Acute Plan to address problem: Heparin 5000. Subjective Date of service: 04/14/18 Interval history: Patient seen and examined. No new complaints. Denies any fever. No nausea no vomiting. Objective - Exam Narrative Exam: Constitutional: Well-nourished well-developed. In no distress Head: Normocephalic atraumatic Eyes: Pupils are equal round and reactive to light Nose: No enlarged turbinates, no septal deviation. Mouth: Moist mucous membranes. Neck: Supple no thyromegaly. No bruit. No JVD Heart: Regular rate and rhythm, S1-S2 abnormal. No rubs murmurs or gallop Lungs: Clear to auscultation bilaterally no rales or rhonchi Abdomen: Soft, nontender. Bowel sound are present. Extremities: No edema no cyanosis and no clubbing. Neuro: Alert oriented Oriented x3. No focal sensory or motor deficit. Skin: No rashes no hyperemic spots Psychiatry: Still has paranoid delusion. Things that some people after her period. - Constitutional Vitals: Vital Signs - 12hr 04/14/18 04/14/18 03:30 08:24 Temperature 97.7 F 97.8 F Pulse Rate 89 72 Respiratory 18 16 Rate Blood Pressure 126/86 Blood Pressure 132/71 [Left] O2 Sat by Pulse 99 Oximetry - Labs CBC & Chem 7: 04/14/18 05:09 04/14/18 05:09 Labs: Abnormal lab results 04/13/18 04/13/18 04/13/18 Range/Units 15:03 15:03 15:03 MCHC (30-34) % Lymph % (Auto) (13.4-35.0) % Seg Neutrophils % (40.0-70.0) % Sodium 125 L (137-145) mmol/L Potassium 3.1 L (3.6-5.0) mmol/L Chloride 92.0 L (98-107) mmol/L BUN 6 L (7-17) mg/dL Creatinine 0.5 L (0.7-1.2) mg/dL Glucose (65-100) mg/dL Direct Bilirubin (0-0.2) mg/dL AST (5-40) units/L ALT (7-56) units/L Total Creatine Kinase (30-135) units/L Albumin (3.9-5) g/dL Salicylates < 0.3 L (2.8-20.0) mg/dL Acetaminophen < 5.0 L (10.0-30.0) ug/mL 04/13/18 04/13/18 04/13/18 Range/Units 15:03 15:03 17:00 MCHC 35 H (30-34) % Lymph % (Auto) (13.4-35.0) % Seg Neutrophils % (40.0-70.0) % Sodium 132 L D (137-145) mmol/L Potassium 3.2 L (3.6-5.0) mmol/L Chloride 97.4 L (98-107) mmol/L BUN (7-17) mg/dL Creatinine 0.5 L (0.7-1.2) mg/dL Glucose 116 H (65-100) mg/dL Direct Bilirubin 0.3 H (0-0.2) mg/dL AST 93 H (5-40) units/L ALT 97 H (7-56) units/L Total Creatine Kinase 216 H (30-135) units/L Albumin (3.9-5) g/dL Salicylates (2.8-20.0) mg/dL Acetaminophen (10.0-30.0) ug/mL 04/14/18 04/14/18 Range/Units 05:09 05:09 MCHC 35 H (30-34) % Lymph % (Auto) 52.5 H (13.4-35.0) % Seg Neutrophils % 36.7 L (40.0-70.0) % Sodium (137-145) mmol/L Potassium (3.6-5.0) mmol/L Chloride 109.0 H (98-107) mmol/L BUN (7-17) mg/dL Creatinine 0.5 L (0.7-1.2) mg/dL Glucose (65-100) mg/dL Direct Bilirubin (0-0.2) mg/dL AST 77 H (5-40) units/L ALT 75 H (7-56) units/L Total Creatine Kinase (30-135) units/L Albumin 3.2 L (3.9-5) g/dL Salicylates (2.8-20.0) mg/dL Acetaminophen (10.0-30.0) ug/mL
[2018-04-14] MEDS: VISTARIL PO PRN (16:02)
[2018-04-14] MEDS: DESYREL PO SCH (21:50)
[2018-04-15] MEDS: D5NS 1,000 ML IV SCH (04:56)
[2018-04-15 07:14] LABS: Basophils % (Auto) 0.7 % (0.0-1.8); Eosinophils # (Auto) 0.2 K/mm3 (0.0-0.4); Eosinophils % (Auto) 2.4 % (0.0-4.3); Lymphocytes # (Auto) 2.6 K/mm3 (1.2-5.4); Lymphocytes % (Auto) 40.6 % (13.4-35.0); Mean Corpuscular HGB Conc 36 % (30-34); Mean Corpuscular Hemoglobin 32 pg (28-32); Mean Corpuscular Volume 89 fl (79-97); Monocytes # (Auto) 0.5 K/mm3 (0.0-0.8); Monocytes % (Auto) 7.1 % (0.0-7.3); Platelet Count 293 K/mm3 (140-440); Red Blood Count 4.36 M/mm3 (3.65-5.03); Red Cell Distribution Width 14.4 % (13.2-15.2)
[2018-04-15] MEDS: VISTARIL PO PRN ×2 (07:18→13:24)
[2018-04-15 07:21] LABS: Hemoglobin 14.1 gm/dl (10.1-14.3)
[2018-04-15 07:22] LABS: Hematocrit 38.6 % (30.3-42.9)
[2018-04-15 07:23] LABS: Alanine Aminotransferase 70 units/L (7-56); Albumin 3.2 g/dL (3.9-5); BUN/Creatinine Ratio 12; Blood Urea Nitrogen 6 mg/dL (7-17); Calcium 8.6 mg/dL (8.4-10.2); Hemolysis Index 5
[2018-04-15] MEDS: HABITROL TD SCH (13:04)
--- NOTE | 2018-04-15 13:41 | Progress Note ---
Subjective - Reason for Consult Consult date: 04/15/18 Reason for consult: Psychiatry Follow-up - Chief Complaint Chief complaint: "I feel much better" 48-year-old female with a history of bipolar disorder. She is brought per EMS after they were summoned by the police. Psychiatry was consulted for medication management, also the patient is on a 1013. Today the patient is calm and cooperative during the assessment. She is more organized today and denies that someone is after her per our conversation yesterday. Per collateral information from her fiance Hugh Christine, he stated that the patient was "paranoid" from using cocaine. He stated that she does "fabricate the truth sometimes." She stated that she was stressed out reference finances so she used cocaine to calm herself down. She denies SI/HI's and AVH's. She denies any side effects of her medication. Mental Status Exam - Vital signs Last Vital Signs Temp 98.4 F 04/15/18 09:44 Pulse 70 04/15/18 09:44 Resp 20 04/15/18 09:44 BP 131/69 04/15/18 09:44 Pulse Ox 96 04/15/18 09:44 - Exam Narrative exam: MSE: Appearance: calm, cooperative Behavior: regular eye contact Speech: regular rate and tone Mood: "okay" Affect: congruent to mood Thought Process: more organized Thought Content: denies SI/HI's and AVH's Motor Activity: lying in bed Cognition: A/O x 3 Insight: fair Judgment: fair Assessment and Plan Impression: Unspecified Psychosis on admission. Hx of Bipolar DO and ZAIRE per the patient. Substance Use DO (cocaine). Today the patient is calm and cooperative during the assessment. DDx: R/O Substance Induced Psychosis, R/O Delusional DO Recommendation/Plan: Evaluate 1013 in 24 hours to determine proper dispo. Continue Zyprexa 10 mg PO HS for psychosis and Vistaril 25 mg PO Q6hrs PRN for anxiety. Continue Trazodone 100 mg PO HS for sleep. Discussed possible suicidality/medication induced andrés with patient reference Trazodone. Discussed possible metabolic side effects of Zyprexa with patient.
[2018-04-15] MEDS: DESYREL PO SCH (21:45)
[2018-04-16] MEDS: HABITROL TD SCH (10:36)
--- NOTE | 2018-04-16 10:37 | Progress Note ---
Assessment and Plan / Substance-induced paranoid schizophrenia/acute psychosis Mental health consult requested Patient on 1013 Started on Zyprexa 10 mg PO HS for psychosis and Vistaril 25 mg PO Q6hrs PRN for anxiety. Continue Trazodone 100 mg PO HS for sleep. / Hyponatremia Normal Serum osmolarity and urine osmolarity ordered Continue IV normal saline, improved / Hypokalemia, Supplemented, normal magnesium level / Substance abuse UDS was positive for cocaine, counseled / DVT prophylaxis Continue subcutaneous Heparin Disposition: Medically stable, will DC upon psych clearance brief history: 48-year-old -Sudanese female with history of bipolar disorder brought in by EMS for her possible "manic episode" patient was recently started her on psychiatric medicines. In the ER patient was not in a manic state and was not suicidal or homicidal but appeared very anxious. She was admitted because of possible psychosis along with low sodium and low potassium. Her sodium was 125 and she is not on any diuretics or Lasix. Physical exam: GENERAL: well-developed and well-nourished -[place]anese female lying on bed appeared to be in no discomfort. HEENT: Normocephalic. Atraumatic. No conjunctival congestion or icterus. Patient has moist mucous membranes. NECK: Supple. Trachea midline. CHEST/LUNGS: Clear to auscultated bilaterally, breathing nonlabored. No wheezes crackles or rhonchi. HEART/CARDIOVASCULAR: Regular in rate and rhythm. S1 and S2 positive. ABDOMEN: Abdomen is soft, nontender. Patient has normal bowel sounds. SKIN: There is no rash. Warm and dry. NEURO: No focal motor deficit. Follows command. MUSCULOSKELETAL: No joint effusion or tenderness. EXTRIMITY: No edema, no cyanosis or clubbing. PSYCH: Cooperative. Appears to be hyperactive Subjective Date of service: 04/15/18 Interval history: Patient seen and examined. Medical records and medication list reviewed. No acute event overnight noted by the RN. Patient denies any chest pain or difficulty breathing. Patient is tolerating diet. Discussed plan of care at bedside with patient. Objective - Constitutional Vitals: Vital Signs - 12hr 04/16/18 08:09 Temperature 98.6 F Pulse Rate 82 Respiratory 15 Rate Blood Pressure 123/90 [Left] O2 Sat by Pulse 100 Oximetry - Labs CBC & Chem 7: 04/15/18 06:00 04/15/18 06:00
--- NOTE | 2018-04-16 11:31 | Discharge Summary ---
Providers - Providers Date of Admission: 04/13/18 17:31 Date of discharge: 04/16/18 Attending physician: COLT TAYLOR 04/13/18 17:46 Consult to Mental Health [CONS] Routine Reason For Exam: Manic phase Place consult to:: GYPSY Notified:: QAMAR Time called:: 08:59 Primary care physician: PANEL LAMINATOR Hospitalization Condition: Stable Hospital course: / Substance-induced paranoid schizophrenia/acute psychosis Mental health consult requested Patient on 1013 Started on Zyprexa 10 mg PO HS for psychosis and Vistaril 25 mg PO Q6hrs PRN for anxiety. Continue Trazodone 100 mg PO HS for sleep. / Hyponatremia Normal Serum osmolarity and urine osmolarity ordered Continue IV normal saline, improved / Hypokalemia, Supplemented, normal magnesium level / Substance abuse UDS was positive for cocaine, counseled / DVT prophylaxis Continue subcutaneous Heparin Disposition: Medically stable, will DC upon psych clearance brief history: 48-year-old -[place]gian female with history of bipolar disorder brought in by EMS for her possible "manic episode" patient was recently started her on psychiatric medicines. In the ER patient was not in a manic state and was not suicidal or homicidal but appeared very anxious. She was admitted because of possible psychosis along with low sodium and low potassium. Her sodium was 125 and she is not on any diuretics or Lasix. Physical exam: GENERAL: well-developed and well-nourished -[place] female lying on bed appeared to be in no discomfort. HEENT: Normocephalic. Atraumatic. No conjunctival congestion or icterus. Patient has moist mucous membranes. NECK: Supple. Trachea midline. CHEST/LUNGS: Clear to auscultated bilaterally, breathing nonlabored. No wheezes crackles or rhonchi. HEART/CARDIOVASCULAR: Regular in rate and rhythm. S1 and S2 positive. ABDOMEN: Abdomen is soft, nontender. Patient has normal bowel sounds. SKIN: There is no rash. Warm and dry. NEURO: No focal motor deficit. Follows command. MUSCULOSKELETAL: No joint effusion or tenderness. EXTRIMITY: No edema, no cyanosis or clubbing. PSYCH: Cooperative. Appears to be hyperactive Disposition: DC-01 TO HOME OR SELFCARE Time spent for discharge: 32 minutes Core Measure Documentation - Palliative Care Palliative Care/ Comfort Measures: Not Applicable - Core Measures Any of the following diagnoses?: none Exam - Constitutional Vitals: Temp Pulse Resp BP Pulse Ox 98.6 F 82 15 123/90 100 04/16/18 08:09 04/16/18 08:09 04/16/18 08:09 04/16/18 08:09 04/16/18 08:09 Plan Activity: advance as tolerated Weight Bearing Status: Weight Bear as Tolerated Diet: regular Follow up with: PRIMARY CARE, [Primary Care Provider] - 3-5 Days Prescriptions: traZODone [Desyrel] 100 mg PO QHS #7 tablet hydrOXYzine PAMOATE [Vistaril] 25 mg PO Q6H PRN #10 capsule PRN Reason: Anxiety OLANzapine [ZyPREXA] 10 mg PO HS #10 tablet
--- NOTE | 2018-04-16 15:39 | Progress Note ---
Subjective - Reason for Consult Consult date: 04/16/18 Reason for consult: Psychiatric Follow-up Evaluation - Chief Complaint Chief complaint: "I feel good. " Patient is a 48-year-old female with a history of bipolar disorder. She is brought per EMS after they were summoned by the police. Psychiatry was consulted for medication management, also the patient is on a 1013. Today the patient is calm and cooperative during the assessment. Per sitter patient has been pleasant. Spouse is at the bedside. He states that patient is in no apparent danger to self or others. He reports that he and patient lives together. States that patient has a good support system. Patient reports medication compliance. She denies side effects. Mental Status Exam - Vital signs Last Vital Signs Temp 98.6 F 04/16/18 08:09 Pulse 82 04/16/18 08:09 Resp 15 04/16/18 08:09 BP 123/90 04/16/18 08:09 Pulse Ox 100 04/16/18 08:09 - Exam Narrative exam: Mental Status Exam: Appearance: calm, cooperative Behavior: regular eye contact Speech: regular rate and tone Mood: "I feel good." Affect: congruent to mood Thought Process: Organized Thought Content: Reality oriented Thought Process: Denies A/V/T hallucinations Motor Activity: lying in bed Cognition: Alert and oriented x 4 ( person, place, time, and situation) Insight: fair Judgment: fair Suicidal Ideation/Plan: Patient denies. "No." Homicidal Ideation/Plan: Patient denies. "No." Assessment and Plan Impression: Unspecified Psychosis on admission. Hx of Bipolar DO and ZAIRE per the patient. Substance Use DO (cocaine). Today the patient is calm and cooperative during the assessment. Patient denies SI/HI, A/VH and delusions. Patient is in no danger to self or others. DDx: R/O Substance Induced Psychosis, R/O Delusional DO Recommendation/Plan: 1. Rescind 1013. 2. Continue Zyprexa 10 mg PO HS for psychosis and Vistaril 25 mg PO Q6hrs PRN for anxiety. Continue Trazodone 100 mg PO HS for sleep. Discussed possible suicidality/medication induced andrés with patient reference Trazodone. Discussed possible metabolic side effects of Zyprexa with patient. 3. Patient will follow-up with Dr. Reich on [address]. Patient counseled on the importance of follow-up appointments and abstinence from recreational drug use (cocaine). Discussed the implementation of effective coping skills. Patient verbalizes understanding. 4. Patient made aware in case of a psychiatric emergency she is to call 911 or report to the emergency room immediately. Patient verbalizes full understanding.
[2018-04-16 16:22] VITALS: BP 119/82
== END 2018-04-16 16:45 | disposition home or self-care (01) ==
LOC: ED 13:50 → INTOOBSV 17:31 → 3A 17:31
PROVIDERS: ADMIT Internal Medicine; ATTEND Internal Medicine
DX: E87.1 Hypo-osmolality and hyponatremia (principal); F31.13 Bipolar disorder, current episode manic without psychotic features, severe; E87.6 Hypokalemia; Z88.6 Allergy status to analgesic agent; F17.200 Nicotine dependence, unspecified, uncomplicated
CPT/HCPCS: 36415; 80048; 80053; 80074; 80307; 81001; 82550; 82553; 83036; 83735; 83930; 83935; 84100; 85025; 96360; 96361; 99285; 99406; G0378; G0480; J7030; J7042; 80320; Q0177

== ENCOUNTER 2021-01-24 12:54 | Outpatient (CLI) | payer OTHER ==
--- NOTE | 2021-01-24 17:07 | Mammography Report ---
DIGITAL SCREENING MAMMOGRAM WITH CAD, 01/24/2021 CLINICAL INFORMATION / INDICATION: Routine screening mammography. SCREENING MAMMOGRAM TECHNIQUE: Digital bilateral 2D mammography was obtained in the craniocaudal and mediolateral obliqu e projections. This examination was interpreted with the benefit of Computer-Aided Detection analysis . COMPARISON: None currently available. FINDINGS: Breast Density: The breasts are heterogeneously dense, which may obscure small masses. No dominant mass, suspicious calcifications, or architectural distortion in either breast. IMPRESSION: No mammographic evidence of malignancy. Follow up recommendation: Routine yearly BI-RADS Category 1: Negative. A "normal" or negative report should not discourage follow up or biopsy of a clinically significant f inding. A written summary of these findings will be mailed to the patient. The patient will be entered into a mammography reporting system which will generate a reminder letter for the patient's next appointmen t at the appropriate interval. The [employer] recommends yearly mammograms starting at age 40 and continuing as l mukul as a woman is in good health. Breast MRI is recommended for women with an approximate 20-25% or greater lifetime risk of breast cancer, including women with a strong family history of breast or ova yesica cancer or who have been treated for Hodgkin's disease. Signer Name: Olvin Lamb MD Signed: 01/24/2021 5:02 PM Workstation Name: [id number]
== END 2021-01-24 12:55 | disposition home or self-care (01) ==
LOC: MAMMO 12:54
PROVIDERS: ATTEND Internal Medicine
DX: Z12.31 Encounter for screening mammogram for malignant neoplasm of breast (principal)
CPT/HCPCS: 77067

== ENCOUNTER 2021-05-08 12:48 | Outpatient (CLI) | payer OTHER | END 2021-05-08 12:49 | disposition home or self-care (01) | LOC: ECHO 12:48 | PROVIDERS: ATTEND Internal Medicine | DX: I34.0 Nonrheumatic mitral (valve) insufficiency (principal) | CPT/HCPCS: 93306 ==